=== PATIENT | female | born 1995 ===

== ENCOUNTER 2018-07-01 20:25 | Emergency (ER) | payer MEDICAID ==
[2018-07-01 21:51] VITALS: BMI 25.2
[2018-07-01 22:18] LABS: SQUAMOUS EPITHIAL 1 /hpf (0-5); URINE AMORPHOUS SEDIMENT FEW /ul (<OCC); URINE BACTERIA MANY (<OCC); URINE BILIRUBIN NEGATIVE (NEGATIVE); URINE BLOOD 1+ (NEGATIVE); URINE CLARITY Clear (Clear); URINE COLOR Yellow (YELLOW); URINE GLUCOSE (UA) NORMAL (Normal); URINE LEUKOCYTE ESTERASE 1+ Leu/uL (Negative); URINE PROTEIN NEGATIVE (NEGATIVE); URINE UROBILINOGEN NORMAL mg/dL (0.2-1.0)
--- NOTE | 2018-07-01 22:55 | OBHP ---
Datetime: 07/01/2018 22:21 IP Adm Impression: Term, intrauterine ; No Active Labor; Intact Membranes IP Admit Plan: Observation/Evaluation Admit Comment, IP Provider: 22 yo female G1 with an IUP at 40.2 weeks with edc 06/29/18 per 20 weeks US by LI. Presented with c/o of irregular and mild tightening of her lower abdomen since earlier thi s evening. Denies LOF. VB or VD and admits to adequate FM. PMHx + HepB since PSHx negative Meds: PNV NKDA Social Hx denies x 3 Past OB Hx Regular menses and LMP 09/29/17 A/P Term not in labor + Bethel Sauer contractions and unfavorable cervic NST Reactive R/O UTI and UA sent to lab Drinks little to no water Continue Observation and FHR's a Uterine contractions monitoring Pelvic Type - PN: Adequate Extremities - PN: Normal Abdomen - PN: Normal Back - PN: Normal Breast - PN: Not Done Lungs - PN: Normal Heart - PN: Normal Thyroid - PN: Normal Neurologic - PN: Normal HEENT - PN: Normal General - PN: Normal Presentation-Admit: Vertex FHR - Baseline A Provider: 160 Membranes, Provider: Intact Contraction Comments Provider: irregular Gestation - Est Wks by US: 40.2 EGA AdmitDate IP: 40.2 Vital Signs Provider: Reviewed IP Chief Complaint: Uterine contractions; Maternal discomfort NICHD Variability Prov Fetus A: Moderate 6-25bpm NICHD Accel Fetus A IP Provider: 10X10 NICHD Decel Fetus A IP Provider: None Dilatation, Provider: 0 Effacement, Provider: 50 Station, Provider: -3 Genitourinary Exam: Normal DTRs - PN: Normal
--- NOTE | 2018-07-01 23:44 | OBDCSUM ---
Datetime: 07/01/2018 22:46 Discharged to, Provider: Home Follow up at, Provider: [facility] Disch Instr Activity: Normal activity Disch Instr Diet: Regular Discharge Instructions, Provider: Routine instructions given Discharge Diagnosis, Provider: Postterm Discharge Time: 07/01/2018 22:46 Follow up in weeks, Provider: 07/02/18 Contraception discussed, Prov: Yes Disch Activity Restrictions: No exercising; No lifting; Minimize stair-climbing; No sexual activity; Nothing in vagina - [place], tampons, douche Discharge Comment, Provider: 22 yo female G1 with an IUP at 40.2 weeks with edc 06/29/18 per 20 weeks US by LI. Presented with c/o of irregular and mild tightening of her lower abdomen since earlier th is evening. Denies LOF. VB or VD and admits to adequate FM. PMHx + HepB since PSHx negative Meds: PNV NKDA Social Hx denies x 3 Past OB Hx Regular menses and LMP 09/29/17 A/P Term not in labor + Elton Sauer contractions and unfavorable cervic NST Reactive Probable UTI and UA with Dehydration Drinks little to no water Rx for Macrobid given Encouraged to increase po water intake Encouraged to keep Clinic appointment in AM Labor precautions reviewed with the patient Discharge Diagnosis Prov Other: Dehydration UTI Not in labor Contraception after Delivery: Undecided
[2018-07-02 13:41] VITALS: BP 115/68; PULSE 85; RESP 18; TEMP 98.4; O2SAT 100
== END 2018-07-01 22:46 | disposition home or self-care (01) ==
LOC: C.EROB 20:25
DX: O23.43 Unspecified infection of urinary tract in pregnancy, third trimester (principal); Z3A.40 40 weeks gestation of pregnancy; E86.0 Dehydration

== ENCOUNTER 2018-07-04 20:08 | Inpatient (IN) | payer MEDICAID ==
[2018-07-04] MEDS ORDERED: Lactated Ringer's 1,000 ML IV ONE (21:13)
[2018-07-04 22:32] LABS: BASO % 0.3 % (0.0-2.0); EOS # 0.1 K/uL (0.0-0.7); EOS % 1.3 % (0.0-4.0); HEMOGLOBIN 11.1 g/dL (11.0-16.0); LYMPH # 1.1 K/uL (1.0-4.3); LYMPH % 19.9 % (20.0-40.0); MEAN CELL VOLUME 97.8 fL (81.0-99.0); MEAN CORPUSCULAR HEMOGLOBIN 31.9 pg (27.0-31.0); MEAN CORPUSCULAR HGB CONC 32.6 g/dL (33.0-37.0); MEAN PLATELET VOLUME 9.8 fL (7.2-11.7); MONO # 0.4 K/uL (0.0-0.8); MONO % 8.1 % (0.0-10.0); NEUT # 3.8 K/uL (1.8-7.0); NEUT % 70.4 % (50.0-75.0); NRBC % 0.1 % (0.0-2.0); RBC 3.48 Mil/uL (3.80-5.20); WHITE BLOOD COUNT 5.3 K/uL (4.8-10.8)
[2018-07-04 22:36] LABS: SQUAMOUS EPITHIAL 10 /hpf (0-5); URINE BACTERIA MANY (<OCC); URINE BILIRUBIN NEGATIVE (NEGATIVE); URINE BLOOD 2+ (NEGATIVE); URINE CALCIUM OXALATE CRYSTALS MOD /hpf (<OCC); URINE CLARITY Hazy (Clear); URINE COLOR Yellow (YELLOW); URINE GLUCOSE (UA) NORMAL (Normal); URINE LEUKOCYTE ESTERASE 2+ Leu/uL (Negative); URINE PROTEIN 1+ mg/dL (NEGATIVE); URINE UROBILINOGEN NORMAL mg/dL (0.2-1.0)
--- NOTE | 2018-07-04 22:43 | OBHP ---
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 , LMP unsure, NEHEMIAS 06/29/18, EGA 40w 5d by 20 weeks sono 02/11/18 c/o Ctx - onset Th07/01 (was seen in O bED; found to "half a centimeter" and sent home). Returns now pain scale of 5/10. (+) AFM; denies LOF, VB. not sexually active since beginning of - FOB not in the [place]. care: [facility] - transfer of care at 17 weeks noted for 1) Hep B carrier. S/P Infectious Disease consultation - "low viral load"; nothing to do. Patient is already reported to [facility]. 2) anemia - on Fe BID and Vit C 500 mg QD - takes omewhat regularly "I forget sometimes". 3) varicella non imm une. 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 Pap in Dom Rep - 1 year ago; wnl. Denies h/o STIs, myomata or ovarian cys ts. PMH: Hep B carrier PSH: denies NKDA Meds: PNV, Vit C - QD; iron - BID Soc Hx: denies tobacco, illicit drug or EtOH use. Lives with family (cousins). 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 ; FOB is not her legal . Fam Hx:Mother alive 38 y.o - no med issues. Father alive 44 - Hep B. No known fam h/o cancer P.E.: as above. WD in NAD. Awake, alert, oriented to time, person and place. Pleasant and cooperat edward Assessment: 22 y.o. P0, 40w 5d, prolonged latent phase of labor; will admit for delivery. D/W sariah ent cervical ripening; possible pitocin; pain management options, and possiblility of delive ry. Patient expressed an understanding and agrees. Her quesitons were answered. Hep B carrier. GBS (- ). Varicella non -immune. Category 1 tracing. Patient is clinically stable. Plan: 1) Admit 2) NPO 3) IVFs 4) Continuous EFM 5) Admission labs 6) Cervidil 7) Anticipate vaginal delivery Addendum: 2140 hours - cervical placed in posterior vaginal fornix. Pelvic Type - PN: Adequate Extremities - PN: Normal Abdomen - PN: Normal Back - PN: Normal Breast - PN: Not Done Lungs - PN: Normal Heart - PN: Normal Thyroid - PN: Not Done Neurologic - PN: Normal HEENT - PN: Normal General - PN: Normal Weight - Estimated: 7lb2oz Presentation-Admit: Vertex FHR - Baseline A Provider: 150 Contraction Comments Provider: irregular Comments, ACOG Physical Exam: Abdomen: Gravid. Soft. Non tender. Fundal height 37 cm All other systems reviewed and are as per HPI Gestation - Est Wks by US: 40w5d IP Hx Assessment: The History has been Reviewed and is Current EGA AdmitDate IP: 40.5 Vital Signs Provider: Reviewed IP Indication for Induction: Postterm IP Chief Complaint: Uterine contractions NICHD Variability Prov Fetus A: Moderate 6-25bpm NICHD Accel Fetus A IP Provider: 15X15 FHR Category Provider Fetus A: Category I NICHD Decel Fetus A IP Provider: None Dilatation, Provider: 0 Effacement, Provider: 30 Station, Provider: -3 Genitourinary Exam: Normal DTRs - PN: Normal
[2018-07-04 22:44] LABS: ALB/GLOB RATIO 1.1 (1.0-2.1); ALBUMIN 3.6 g/dL (3.5-5.0); ALT/SGPT 21 U/L (9-52); AST/SGOT 19 U/L (14-36); BLOOD UREA NITROGEN 9 mg/dL (7-17); CALCIUM 9.3 mg/dl (8.6-10.4); GFR NON-AFRICAN AMERICAN > 60
[2018-07-04] MEDS: Lactated Ringer's 1,000 ML IV SCH (23:09)
[2018-07-05] MEDS: Lactated Ringer's 1,000 ML IV SCH (04:18)
[2018-07-05] MEDS ORDERED: Lactated Ringer's 1,000 ML IV ONE ×2 (08:04→22:10)
[2018-07-05] MEDS ORDERED: Fentanyl/Bupivacaine HCl 250 ML EPI ONE ×2 (09:13→19:06)
[2018-07-05] MEDS ORDERED: Oxytocin 30 UNIT 30 UNITS/500 ML BAG IV SCH (09:15)
[2018-07-05] MEDS ORDERED: Oxytocin 30 UNIT 30 UNITS/500 ML BAG IV ONE (10:09)
[2018-07-05 11:58] LABS: SQUAMOUS EPITHIAL < 1 /hpf (0-5); URINE AMORPHOUS SEDIMENT RARE /ul (<OCC); URINE BACTERIA RARE (<OCC)
[2018-07-05 11:59] LABS: URINE BILIRUBIN NEGATIVE (NEGATIVE); URINE BLOOD NEGATIVE (NEGATIVE); URINE CLARITY Clear (Clear); URINE COLOR Straw (YELLOW); URINE GLUCOSE (UA) NORMAL (Normal); URINE LEUKOCYTE ESTERASE NEG Leu/uL (Negative); URINE PROTEIN NEGATIVE (NEGATIVE); URINE UROBILINOGEN NORMAL mg/dL (0.2-1.0)
--- NOTE | 2018-07-05 13:48 | OBPN ---
Datetime: 07/05/2018 10:48 IP Progress Impression: Normal progression of labor; Reassuring heart rate; Reactive non-stres s test IP Procedures: Artificial ROM; Intrauterine Pressure Catheter; Scalp Electrode; Sterile Vag Ex am; Epidural Placement Membranes, Provider: Ruptured Contraction Comments Provider: Contractions q 2 mins on tocometer FHR - Baseline A Provider: 145 Vital Signs Provider: Reviewed; Within Normal Limits NICHD Accel Fetus A IP Provider: 15X15 FHR Category Provider Fetus A: Category I NICHD Variability Prov Fetus A: Moderate 6-25bpm Dilatation, Provider: 2 Effacement, Provider: 70 Station, Provider: -3 NICHD Decel Fetus A IP Provider: None Datetime: 07/05/2018 09:02 IP Informed Consent Obtain: Induction of Labor IP Progress Plan: Continue present management; Anesthesia consult; Anticipate Vaginal Delivery Gestation - Est Wks by US: 40.6 Presentation-Admit: Vertex IP Progress Note Comment: Pt seen and examined at bedside. C/o low abd pressure, otherwise has no ac noam concerns. Denies leakage of fluid or vaginal bleeding, reports positive movement. VE: /-3. Cervidil removed @ 9:00. heart tracing: baseline 145 bpm, moderate accels, some variables, contractions q 3 mins on t ocometer A/P: for induction of labor S/p Cervidil removal Cervical exam /-3 Pt interested in receiving epidural, anesthesia consulted Continue Induction of labor with Pitocin Anticipate vaginal delivery Pt seen, examined with, and plan d/w Dr. Jose, attending physician. Blayne Hunter, DO PGY-1 Datetime: 07/04/2018 21:58 Weight - Estimated: 7lb2oz
--- NOTE | 2018-07-05 17:55 | OBPN ---
Datetime: 07/05/2018 17:00 IP Progress Impression: Reassuring heart rate IP Informed Consent Obtain: Vaginal Delivery IP Procedures: Sterile Vag Exam IP Progress Plan: Induction Membranes, Provider: Ruptured Contraction Comments Provider: up to 200 MVU Gestation - Est Wks by US: 40.6 Presentation-Admit: Vertex IP Progress Note Comment: Pt seen and examined SVE /-1 with large caput formation UC'S AT 200 MVU' with Pitocin at 12 mU/min and will increase to 240-150 MVU Position changing from side to side VSS Epidural working well Hope for a vaginal delivery FHR Category Provider Fetus A: Category II Dilatation, Provider: 6 Effacement, Provider: 100 Station, Provider: -1 NICHD Decel Fetus A IP Provider: Variable Datetime: 07/05/2018 15:43 FHR - Baseline A Provider: 145 NICHD Accel Fetus A IP Provider: 10X10 NICHD Variability Prov Fetus A: Moderate 6-25bpm
[2018-07-05] MEDS ORDERED: cefOXitin IV 2 gm in Saline 2 GM/50 ML BAG IVPB ONE (22:07)
[2018-07-05] MEDS ORDERED: Sodium Citrate/Citric Acid 15 ml Sol ONE (22:07)
[2018-07-05] MEDS ORDERED: cefOXitin IV 2 gm in Dextrose 2 GM/50 ML BAG IVPB ONE (22:10)
[2018-07-05] MEDS ORDERED: Oxytocin 20 units in LR 2,000 ML IV ONE (22:18)
--- NOTE | 2018-07-05 22:24 | OBPN ---
Datetime: 07/05/2018 22:16 IP Progress Impression Other: Tachycardia IP Progress Impression: Arrest of dilatation/descent IP Informed Consent Obtain: Section Delivery IP Procedures: Sterile Vag Exam IP Progress Plan: Deliver- Section Membranes, Provider: Ruptured FHR - Baseline A Provider: 170 Gestation - Est Wks by US: 40.6 Presentation-Admit: Vertex IP Progress Note Comment: Pt seen and examined Completely dilated and pushing for 2 hours with minimal progres in descent Category 2 tracing Recommended a C/S delivery for and maternal well being Procedure, risks and possible complications fully reviewed with patient and she verbalized underst anding, requested to proceed and signed the consent Anesthesia, OR, and Weigh Tank Operator notified and will proceed. Vital Signs Provider: Reviewed; Within Normal Limits NICHD Accel Fetus A IP Provider: 10X10 FHR Category Provider Fetus A: Category II NICHD Variability Prov Fetus A: Moderate 6-25bpm Dilatation, Provider: 10 Effacement, Provider: 100 Station, Provider: -1 NICHD Decel Fetus A IP Provider: Variable
[2018-07-05] MEDS ORDERED: ePHEDrine 50 mg/ml Inj ONE (22:29)
[2018-07-05] MEDS ORDERED: Lidocaine 2% MPF (5 ml) Inj ONE ×2 (22:30)
[2018-07-05] MEDS ORDERED: Morphine 1 mg/ml preservative-free Inj(Duramorph) ONE (22:30)
[2018-07-05] MEDS ORDERED: Midazolam 2 MG/2 ML VIAL ONE ×2 (23:14→23:49)
[2018-07-06] MEDS ORDERED: Oxytocin 30 UNIT 30 UNITS/500 ML BAG IV SCH (00:48)
[2018-07-06] MEDS ORDERED: Oxytocin 30 UNIT 30 UNITS/500 ML BAG IV ONE (01:47)
[2018-07-06] MEDS ORDERED: metroNIDAZOLE IV 500 mg/100 ml 250 MG in Premixed IV 1 EA IVPB SCH (02:15)
--- NOTE | 2018-07-06 04:16 | OBDS ---
DELIVERY PERSONNEL Delivery Doctor: Aman Jose DO Scrub Nurse: Joanna Shah OBT Chaperone: Laila Barrios RN Anesthesiologist: DR ONELIA FRANCOIS MATERNAL INFORMATION Delivery Anesthesia: Epidural Medications in Delivery: methergene iamp IM Estimated Blood Loss (ml): 800 Placenta Cultured: Yes Maternal Complications: Chorioamnionitis Other Maternal Complications: Arrest of Descent Provider Comments: Primary LTC Section with delivery of a viable male from ELIGIO position. Apgars 5_8 at 1 and 5 minutes and a BirthWeight of 7lbs 15 oz. and a cord presenting with head but not around neck. EBL 800 mls Mild uterine atony that ressolved with Increased Pitocin infusion and Methergine x 1 dose Patient and both toleraed the procedure well and left the OR in S_S condition. LABOR SUMMARY EDC: 06/29/2018 00:00 EDC: 06/29/2018 00:00 No. Babies in Womb: 1 LABOR INFORMATION Reason for Induction: Postterm Onset of Labor: 07/03/2018 21:00 Cervical Ripening Agents: Haines Balloon Cervical Ripening Agents: CERVIDIL IN PLACE Cervical Ripening Agents: CERVIDIL IN PLACE Cervical Ripening Agents: CERVIDIL IN PLACE Cervical Ripening Agents: CERVIDIL IN PLACE Cervical Ripening Agents: CERVIDIL IN PLACE Cervical Ripening Agents: Cervidil Group B Beta Strep: Negative (Annotations: 05/25/2018) MEMBRANES Membranes Rupture Method: Artificial Membranes Rupture Method: Artificial Rupture of Membranes: 07/05/2018 10:30 Rupture of Membranes: 07/05/2018 10:30 Amniotic Fluid Color: Clear Amniotic Fluid Color: Clear Amniotic Fluid Color: Clear Amniotic Fluid Color: Clear Amniotic Fluid Color: Clear Amniotic Fluid Color: Clear Amniotic Fluid Color: Clear Amniotic Fluid Color: Clear Amniotic Fluid Color: Clear Amniotic Fluid Color: Clear Amniotic Fluid Color: Clear Amniotic Fluid Color: Clear Amniotic Fluid Color: Clear Amniotic Fluid Color: Clear Amniotic Fluid Color: Clear Amniotic Fluid Color: Clear Amniotic Fluid Color: Clear Amniotic Fluid Color: Clear Amniotic Fluid Color: Clear Amniotic Fluid Color: Clear Amniotic Fluid Color: Clear Amniotic Fluid Color: Clear Amniotic Fluid Color: Clear Amniotic Fluid Color: Clear Amniotic Fluid Color: Clear Amniotic Fluid Color: Clear Amniotic Fluid Color: Clear Amniotic Fluid Color: Clear Amniotic Fluid Color: Clear Amniotic Fluid Color: Clear Amniotic Fluid Color: Clear Amniotic Fluid Color: Clear Amniotic Fluid Color: Clear Amniotic Fluid Color: Clear Amniotic Fluid Color: Clear Amniotic Fluid Color: Clear Amniotic Fluid Amount: Moderate Amniotic Fluid Amount: Small Amniotic Fluid Amount: Small Amniotic Fluid Odor: None Amniotic Fluid Odor: None Amniotic Fluid Odor: None Amniotic Fluid Odor: None Amniotic Fluid Odor: None Amniotic Fluid Odor: None Amniotic Fluid Odor: None Amniotic Fluid Odor: None Amniotic Fluid Odor: None Amniotic Fluid Odor: Normal Amniotic Fluid Odor: None Amniotic Fluid Odor: None Amniotic Fluid Odor: None Amniotic Fluid Odor: None Amniotic Fluid Odor: None Amniotic Fluid Odor: None Amniotic Fluid Odor: None Amniotic Fluid Odor: None Amniotic Fluid Odor: None Amniotic Fluid Odor: None Amniotic Fluid Odor: None Amniotic Fluid Odor: None Amniotic Fluid Odor: None Amniotic Fluid Odor: None Amniotic Fluid Odor: None Amniotic Fluid Odor: None Amniotic Fluid Odor: None Amniotic Fluid Odor: None Amniotic Fluid Odor: None Amniotic Fluid Odor: None Amniotic Fluid Odor: None Amniotic Fluid Odor: None Amniotic Fluid Odor: None Amniotic Fluid Odor: None Amniotic Fluid Odor: None Amniotic Fluid Odor: None CSECTION DELIVERY Primary Indication: Postdate Other Primary Indication: Arrest of Descent Secondary Indication: Failed Induction Other Secondary Indication: Probable Chorioammionitis CSection Incision: Lower Uterine Transverse Uterine Closure: Single-layer closure BABY A INFORMATION Method of Delivery: Born in Route : No : N/A Forceps: N/A Vacuum Extraction: N/A Shoulder Dystocia : No PRESENTATION/POSITION BABY A Presentation: Cephalic Cephalic Presentation: Vertex Breech Presentation: N/A PLACENTA INFORMATION BABY A Placenta Method of Delivery: Manual Removal Placenta Status: Delivered SCORES BABY A Heart Rate 1 min: >100 bpm Resp Effort 1 min: Slow, Irregular Reflex Irritability 1 min: Grimace Muscle Tone 1 min: Some Flexion of Extremities Color 1 min: Blue/Pale SCORE 1 MIN: 5 Heart Rate 5 min: >100 bpm Resp Effort 5 min: Good Cry Reflex Irritability 5 min: Grimace Muscle Tone 5 min: Some Flexion of Extremities Color 5 min: Completely [place] SCORE 5 MIN: 8 INFORMATION BABY A Gestational Age at Delivery: 40.6 Gestational Status: Term Outcome : Liveborn Infant Condition : Fair Infant Sex: Male IDENTIFICATION/MEDS BABY A ID Band Number: [id number] Sensor Applied: Yes Sensor Number: [id number] Sensor Location : Cord Clamp WEIGHT/LENGTH BABY A Infant Birthweight (gms): 3590 Weight (lb): 7 Weight (oz): 15 Length Inches: 21.50 Infant Length cms: 54.6 CORD INFORMATION BABY A No. Cord Vessels: 3 Nuchal Cord : N/A Cord Blood Taken: Yes Infant Suction: Mouth
--- NOTE | 2018-07-06 08:13 | OBPPN ---
Datetime: 07/06/2018 08:09 PP Pain Prov: Within normal limits PP Nausea Prov: Denies PP Flatus Prov: No PP BM Prov: No PP Breasts Prov: Not Done PP Heart Prov: Normal PP Lungs Prov: Not Done PP Abdomen/Uterus Prov: Normal PP Lochia Prov: Not Done PP Vulva/Perineum Prov: Not Done PP CVA Tenderness Prov: Not Done PP Extremities Prov: Not Done PP C/S Incision Prov: Normal PP Comments Phys Exam Prov: PP Impression Prov: Normal progression PP Plan Prov: Continue present management; Antibiotic therapy PP Impression Other Prov: chorioamnionitis PP Progress Note Prov: pod #1 s/p CS for arrest of descent, Cat 2 tracing, chorioamnionitis currently afebrile, vitals stable clear liquid diet with PO pain meds ROSANGELA hitchcock 12 hours post op blood cultures pending, morning cbc pending s/p clio and flagyl---> transitioned antibiotics to amp/clinda/gent IP PP Procedures: None Vital Signs Provider PP: Reviewed; Within Normal Limits
[2018-07-06] MEDS: AMPicillin 2 GM in Sodium Chloride 100 ML IVPB SCH ×3 (09:04→20:47)
[2018-07-06] MEDS: Prenatal Multivit/Folic Acid/Iron Tab PO SCH (09:39)
[2018-07-06] MEDS: Simethicone 80 mg Chewtab PO SCH ×3 (09:39→17:33)
[2018-07-06] MEDS ORDERED: Sodium Citrate/Citric Acid 15 ml Sol PO ONE (10:30)
[2018-07-06] MEDS: Clindamycin 600mg/50ml NS 600 MG/50 ML BAG IVPB SCH ×2 (10:36→17:32)
[2018-07-06 10:37] LABS: BASO # 0.1 K/uL (0.0-0.2); BASO % 0.4 % (0.0-2.0); EOS % 0.1 % (0.0-4.0); LYMPH # 0.8 K/uL (1.0-4.3); LYMPH % 4.4 % (20.0-40.0); MEAN CORPUSCULAR HEMOGLOBIN 32.2 pg (27.0-31.0); MEAN CORPUSCULAR HGB CONC 32.6 g/dL (33.0-37.0); MEAN PLATELET VOLUME 9.5 fL (7.2-11.7); MONO # 1.1 K/uL (0.0-0.8); MONO % 6.2 % (0.0-10.0); NEUT # 15.3 K/uL (1.8-7.0); NEUT % 88.9 % (50.0-75.0); PLATELET COUNT 152 K/uL (130-400); RBC 2.58 Mil/uL (3.80-5.20); RED CELL DISTRIBUTION WIDTH 14.2 % (11.5-14.5)
[2018-07-06] MEDS: Gentamicin 80 mg in 0.9% NS 80 MG/100 ML BAG IVPB SCH ×2 (10:42→19:07)
[2018-07-06 10:46] LABS: HEMOGLOBIN 8.3 g/dL (11.0-16.0); WHITE BLOOD COUNT 17.2 K/uL (4.8-10.8)
[2018-07-06 11:14] LABS: BANDS 12 % (0-2); LYMPHOCYTE 7 % (20-40); MONOCYTE 4 % (0-10); NEUTROPHIL 77 % (50-75); TOTAL CELLS COUNTED 100
[2018-07-06 11:15] LABS: PLATELET ESTIMATE NORMAL (NORMAL)
[2018-07-06] MEDS: Oxycodone/Acetaminophen 5/325 mg Tab PO PRN (21:51)
[2018-07-07] MEDS: Clindamycin 600mg/50ml NS 600 MG/50 ML BAG IVPB SCH ×3 (00:46→17:24)
[2018-07-07] MEDS: Gentamicin 80 mg in 0.9% NS 80 MG/100 ML BAG IVPB SCH ×3 (01:54→18:33)
[2018-07-07] MEDS: AMPicillin 2 GM in Sodium Chloride 100 ML IVPB SCH ×4 (03:06→20:37)
[2018-07-07] MEDS: Simethicone 80 mg Chewtab PO SCH ×5 (03:45→22:00)
[2018-07-07] MEDS: Oxycodone/Acetaminophen 5/325 mg Tab PO PRN (06:13)
[2018-07-07 07:40] LABS: BASO % 0.1 % (0.0-2.0); HEMOGLOBIN 6.9 g/dL (11.0-16.0); LYMPH # 0.7 K/uL (1.0-4.3); LYMPH % 5.4 % (20.0-40.0); MEAN CELL VOLUME 97.9 fL (81.0-99.0); MEAN CORPUSCULAR HEMOGLOBIN 32.8 pg (27.0-31.0); MEAN CORPUSCULAR HGB CONC 33.5 g/dL (33.0-37.0); MEAN PLATELET VOLUME 9.2 fL (7.2-11.7); MONO # 0.7 K/uL (0.0-0.8); MONO % 5.5 % (0.0-10.0); NEUT # 11.6 K/uL (1.8-7.0); PLATELET COUNT 149 K/uL (130-400)
[2018-07-07 08:48] LABS: BANDS 3 % (0-2); LYMPHOCYTE 2 % (20-40); MONOCYTE 2 % (0-10); NEUTROPHIL 93 % (50-75); PLATELET ESTIMATE NORMAL (NORMAL); TOTAL CELLS COUNTED 100
[2018-07-07] MEDS: Prenatal Multivit/Folic Acid/Iron Tab PO SCH (09:34)
[2018-07-08] MEDS: Oxycodone/Acetaminophen 5/325 mg Tab PO PRN ×2 (00:59→17:45)
[2018-07-08] MEDS: Clindamycin 600mg/50ml NS 600 MG/50 ML BAG IVPB SCH ×3 (01:30→17:43)
[2018-07-08] MEDS: Gentamicin 80 mg in 0.9% NS 80 MG/100 ML BAG IVPB SCH ×3 (02:15→18:23)
--- NOTE | 2018-07-08 06:55 | OBPPN ---
Datetime: 07/07/2018 07:27 PP Pain Prov: Within normal limits PP Nausea Prov: Denies PP Flatus Prov: Yes PP BM Prov: No PP Breasts Prov: Normal PP Heart Prov: Normal PP Lungs Prov: Normal PP Abdomen/Uterus Prov: Normal PP Lochia Prov: Normal PP Vulva/Perineum Prov: Normal PP Extremities Prov: Normal PP C/S Incision Prov: Normal PP Progress Prov: Normal PP Impression Prov: Normal progression; Endometritis; difficulties; Increas ed temperature PP Plan Prov: Continue present management; Antibiotic therapy PP Progress Note Prov: 22 y o now at 40.6 weeks s/p primary C/s for arrest of descent, Cat II tracing, chorioamnionitis. Pt seen and examined at bedside this am. Denies any acute complaints. Reports pain well controlled, s/p doses of Motrin and Percocet this am. States is impro ving, but states she is also using supplemental formula because she states she is still not producing enough breast milk. Admits to passing flatus, voiding without concerns, tolerating PO diet, ambulati ng around room without concerns. Denies having BM. Denies headache, fever, chills, chest pain, sob, n /v/d/c, urinary complaints, or other symptoms. Exam: Gen: WDWN female, NAD HEENT: NCAT, PERRLA, EOMI Neck: supple, no JVD Heart: normal s1/s2, no m/r/g Lungs: CTA b/l, no wheezes, rales or rhonchi Abd: soft, mild tenderness to palpation at surgical site, normal bowel sounds x4, no rebound tende rness, no rigidity : mild lochia, non-foul smelling Exts: no c/c/e Neuro: AAOx3, no gross deficits Skin: surgical site c/d/i A/P: now s/p primary C/s POD#2. WBC yesterday 17.2, trend am CBC Febrile overnight to 100.4, continue to monitor Continue w/ amp/gent/clinda Post-op H/H 8.3/25.6; pt had hx anemia during requiring iron bid and vit C daily, c/w yvrose th Encourage ambulation and Also encouraged pt to increase PO intake of water to improve milk stores Pain well controlled, continue to monitor D/c planning for POD#3 if pt afebrile and clinical status improves Will discuss with Dr. Samuel, attending physician. Blayne Hunter, DO PGY-1 IP PP Procedures: None Vital Signs Provider PP: Reviewed; Within Normal Limits
[2018-07-08 08:26] LABS: BASO % 0.2 % (0.0-2.0); EOS # 0.1 K/uL (0.0-0.7); EOS % 0.8 % (0.0-4.0); LYMPH # 1.3 K/uL (1.0-4.3); LYMPH % 14.8 % (20.0-40.0); MEAN CELL VOLUME 98.1 fL (81.0-99.0); MEAN CORPUSCULAR HEMOGLOBIN 32.8 pg (27.0-31.0); MEAN CORPUSCULAR HGB CONC 33.5 g/dL (33.0-37.0); MEAN PLATELET VOLUME 9.1 fL (7.2-11.7); MONO # 0.5 K/uL (0.0-0.8); NEUT # 6.8 K/uL (1.8-7.0); NEUT % 78.2 % (50.0-75.0); RBC 1.92 Mil/uL (3.80-5.20); RED CELL DISTRIBUTION WIDTH 14.1 % (11.5-14.5); WHITE BLOOD COUNT 8.7 K/uL (4.8-10.8)
[2018-07-08 08:30] LABS: HEMOGLOBIN 6.3 g/dL (11.0-16.0)
[2018-07-08] MEDS: Prenatal Multivit/Folic Acid/Iron Tab PO SCH (09:51)
[2018-07-08] MEDS: Simethicone 80 mg Chewtab PO SCH ×4 (09:52→22:32)
--- NOTE | 2018-07-08 10:25 | OBPPN ---
Datetime: 07/08/2018 09:16 PP Pain Prov: Within normal limits PP Nausea Prov: Denies PP Flatus Prov: Yes PP BM Prov: No PP Heart Prov: Normal PP Lungs Prov: Normal PP Abdomen/Uterus Prov: Normal PP Lochia Prov: Normal PP Vulva/Perineum Prov: Normal PP Extremities Prov: Normal PP C/S Incision Prov: Normal PP Progress Prov: Abnormal PP Impression Prov: Normal progression; Endometritis; difficulties PP Plan Prov: Continue present management; Antibiotic therapy PP Progress Note Prov: 22 y o now at 40.6 weeks s/p primary C/s for arrest of descent, Cat II tracing, chorioamnionitis POD#3. Pt seen and examined at bedside this am. Denies any acute compla ints. Reports pain well controlled, s/p doses of Motrin and Percocet this am. States is improving, but states she is also using supplemental formula because she states she is still not pro ducing enough breast milk. Admits to passing flatus, voiding without concerns, tolerating PO diet, am bulating around room without concerns. Denies having BM. Denies headache, fever, chills, chest pain, sob, n/v/d/c, urinary complaints, or other symptoms. Exam: V: BP 104/63, P 100, T 98.2 Gen: WDWN female, NAD HEENT: NCAT, PERRLA, EOMI Neck: supple, no JVD Heart: normal s1/s2, no m/r/g Lungs: CTA b/l, no wheezes, rales or rhonchi Abd: soft, mild tenderness to palpation at surgical site, normal bowel sounds x4, no rebound tende rness, no rigidity : mild lochia, non-foul smelling Exts: no c/c/e Neuro: AAOx3, no gross deficits Skin: surgical site c/d/i A/P: now s/p primary C/s POD#3. WBC trending down 17.2 => 13 => 8.7 Afebrile x 24 hrs, continue to monitor Continue w/ gent/clinda; ampicillin d/c'd yesterday evening Post-op H/H 8.3/25.6 => 6.9/20.6 => 6.3/18.9 ; pt had hx anemia during requiring iron bi d and vit C daily, c/w both; transfusion consent to be obtained, type + cross ordered Encourage ambulation and Also encouraged pt to increase PO intake of water to improve milk stores Pain well controlled, continue to monitor Will discuss with Dr. Quiroz, attending physician. Blayne Hunter DO PGY-1 Attending Note: Patient was seen and evaluated by me with a Resident. I agree with the above as documented, with t he following addition: 1) Hep B carrier - asymptomatic, nothing to do; 2) varicella non immune - anti cipate immunization at post visit, or thereafter. Patient was counseled using [facility], [place] [id number] for blood transfusion in light of severe (acute blood loss anemia): R/B/C an d most common side effects were discussed. Patient's questions and concerns were answered and address ed. Patient agrees to the blood transfusion. Consent was signed, dated, witnessed and [facility]. Patient is clinically stable. Vital Signs Provider PP: Reviewed; Within Normal Limits
[2018-07-08 22:01] LABS: MEAN CELL VOLUME 92.8 fL (81.0-99.0); MEAN CORPUSCULAR HEMOGLOBIN 31.3 pg (27.0-31.0); MEAN CORPUSCULAR HGB CONC 33.7 g/dL (33.0-37.0); MEAN PLATELET VOLUME 9.2 fL (7.2-11.7); RBC 3.14 Mil/uL (3.80-5.20); RED CELL DISTRIBUTION WIDTH 17.5 % (11.5-14.5)
[2018-07-08 22:03] LABS: HEMOGLOBIN 9.8 g/dL (11.0-16.0)
[2018-07-09 00:43] VITALS: RESP 20
[2018-07-09] MEDS: Clindamycin 600mg/50ml NS 600 MG/50 ML BAG IVPB SCH ×2 (01:01→08:33)
[2018-07-09] MEDS: Gentamicin 80 mg in 0.9% NS 80 MG/100 ML BAG IVPB SCH ×2 (01:31→09:39)
[2018-07-09] MEDS ORDERED: Oxycodone/Acetaminophen 5/325 mg Tab PO PRN (03:36)
[2018-07-09 07:58] LABS: BASO % 0.3 % (0.0-2.0); EOS # 0.2 K/uL (0.0-0.7); EOS % 2.1 % (0.0-4.0); HEMOGLOBIN 9.1 g/dL (11.0-16.0); LYMPH # 1.1 K/uL (1.0-4.3); LYMPH % 14.2 % (20.0-40.0); MEAN CELL VOLUME 92.2 fL (81.0-99.0); MEAN CORPUSCULAR HEMOGLOBIN 31.8 pg (27.0-31.0); MEAN CORPUSCULAR HGB CONC 34.4 g/dL (33.0-37.0); MEAN PLATELET VOLUME 8.7 fL (7.2-11.7); MONO # 0.5 K/uL (0.0-0.8); MONO % 6.1 % (0.0-10.0); NEUT # 5.7 K/uL (1.8-7.0); NEUT % 77.3 % (50.0-75.0); NRBC % 0.2 % (0.0-2.0); RBC 2.87 Mil/uL (3.80-5.20); RED CELL DISTRIBUTION WIDTH 17.5 % (11.5-14.5); WHITE BLOOD COUNT 7.4 K/uL (4.8-10.8)
[2018-07-09] MEDS: Simethicone 80 mg Chewtab PO SCH (09:35)
[2018-07-09] MEDS: Prenatal Multivit/Folic Acid/Iron Tab PO SCH (09:35)
--- NOTE | 2018-07-09 10:54 | OBDCSUM ---
Datetime: 07/09/2018 10:43 Discharged to, Provider: Home Follow up at, Provider: [facility] Disch Instr Activity: May be up to bathroom; May be up for meals; May Shower Disch Instr Diet: Regular Discharge Instructions, Provider: Routine instructions given Discharge Diagnosis, Provider: Term Delivered; Amnionitis Discharge Time: 07/09/2018 10:52 Follow up in weeks, Provider: 1 week Disch Referrals: None Contraception discussed, Prov: Yes Disch Activity Restrictions: No exercising; No lifting; No driving; No sexual activity; Nothing in v agina - [place], tampons, douche Discharge Comment, Provider: Follow up with [facility] in 1 week for incision check (juan miguel re moval)/ check No sexual intercourse or nothing per vagina for 6-8 weeks, no heavy lifting for 6-8 weeks Please continue to ambulate and hydrate. Please take ferrous sulfate 325mg PO BID Please take percocet and motrin for pain control as needed. Please continue with breast feeding. Please take prune juice, increase fiber/water intake and OTC stool softner for bowel movement. Please continue to keep incision clean and dry. Please return to the hospital if symptoms of fever , chills, nausea, excessive vomtiing, excessive abdominal pain, drainage or bleeding from incsion si te. Please take care All discharge instrcution explained in malaysian and patient expressed understanding Discharge Diagnosis Prov Other: 40.5 weeks delivery via due to arrest of descent and chori oaminitis Contraception after Delivery: Undecided
--- NOTE | 2018-07-09 10:55 | OBPPN ---
Datetime: 07/09/2018 10:21 PP Pain Prov: Within normal limits PP Nausea Prov: Denies PP Flatus Prov: Yes PP BM Prov: No PP Heart Prov: Normal PP Lungs Prov: Normal PP Abdomen/Uterus Prov: Normal PP Lochia Prov: Normal PP Extremities Prov: Normal PP C/S Incision Prov: Normal PP Comments Phys Exam Prov: Abdomen: Soft, +bowel sounds, appropriately tender s/p LTCS (incision is clean, dry, intact with juan miguel) PP Impression Prov: Normal progression PP Plan Prov: Discharge PP Progress Note Prov: Patient was seen and examined at bedside. Patient was out of bed to chair, re sting comfortably. Patient reports that she is doing well with pain well-controlled with motrin and p ercocet. Patient admits to tolerating diet, passing flatus, voiding and ambulating without diffciulti es. Patient is breast feeding with formula supplement. Patient tolerated 2 units PRBC yesterday witho ut any complications. Upon review of system, patient denies fever, chills, nausea, vomiting, bowel mo vement, chest pain, palpitations, shortness of breath, dizziness and calf tenderness. VS: BP: 120/75, HR:83, Temp:98.4, 02: 99% PE: See above in exam section and exam comment box Labs: 17.0>8.3/25.6<152, 13.0>6.9/20.6<149, 8.7>6.3/18.9<172, 9.0>9.8/29.1<209 (S/P 2 units of PRB C), 7.4>9.1/26.4<230 O+, rubella immune A/P: Patient is a 22 year old female who delivered at 40.5 weeks via primary LTCS due to arre st of descent and chorioaminiotis POD #4 1. Stable, Afebrile 2. Pain is well-controlled 3. H/H stable s/p 2 units of PRBC (Will discharge on ferrous sulfate 325mg PO BID) 4. Abx (amp/clin/gent discontinued, patient is afebrile, No WBC x2 days, no bandemia, negative blo od culture after 72 hours 5. Varicella non-immune: Will need vaccination at first visit 6 Discharge home today: Follow up with [facility] in 1 week for incision check (juan miguel remov al)/ check, No sexual intercourse or nothing per vagina for 6-8 weeks, no heavy lifting fo r 6-8 weeks, please continue to ambulate and hydrate.. Please take ferrous sulfate 325mg PO BID and p ercocet and motrin for pain control. Please continue with breast feeding. Please take prune juice, in crease fiber/water intake and OTC stool softner for bowel movement. Please continue to keep incision clean and dry. Please return to the hospital if symptoms of fever, chills, nausea, excessive vomtiin g, excessive abdominal pain, drainage or bleeding from incsion site. - Primitivo, PGY 2 i have personally seen and examined the patient and agree with above documentation by resident IP PP Procedures: Transfusion Vital Signs Provider PP: Reviewed
[2018-07-09] MEDS ORDERED: Influenza Vaccine 60 MCG/0.5 ML SYR (3 yr & up) IM ONE (11:52)
[2018-07-09 18:52] VITALS: BP 121/78; PULSE 75; TEMP 98.5; O2SAT 98
== END 2018-07-09 16:00 | disposition home or self-care (01) | DRG 540 ==
LOC: C.EROB 20:08 → C.4D 21:13 → C.4M 07-06 04:27
PROVIDERS: ADMIT Obstetrics & Gynecology; ATTEND Obstetrics & Gynecology
PROC: 10D00Z1 Extraction of Products of Conception, Low, Open Approach (ICD-10-PCS; principal; 2018-07-05)
PROC: 3E0P7VZ Introduction of Hormone into Female Reproductive, Via Natural or Artificial Opening (ICD-10-PCS; 2018-07-05)
PROC: 10907ZC Drainage of Amniotic Fluid, Therapeutic from Products of Conception, Via Natural or Artificial Opening (ICD-10-PCS; 2018-07-05)
DX: O41.1230 Chorioamnionitis, third trimester, not applicable or unspecified (principal); B19.10 Unspecified viral hepatitis B without hepatic coma; O98.42 Viral hepatitis complicating childbirth; O48.0 Post-term pregnancy; Z3A.40 40 weeks gestation of pregnancy; O76 Abnormality in fetal heart rate and rhythm complicating labor and delivery; Z37.0 Single live birth; O63.0 Prolonged first stage (of labor); O69.9XX0 Labor and delivery complicated by cord complication, unspecified, not applicable or unspecified; O62.2 Other uterine inertia; O61.0 Failed medical induction of labor